=== PATIENT | female | born 1965 | race African-American/Black ===

== ENCOUNTER 2017-09-22 17:01 | Emergency (ER) | payer OTHER ==
[~2017-09-22] VITALS: Ht 175.3 cm; Wt 92.5 kg
[~2017-09-22 17:01] MED LIST: BENZ100 PO; DELS30LI5 PO; MUCI600T PO; TYLE3 PO; ZITH250T PO
[2017-09-22 17:11] VITALS: BP 165/85; PULSE 87; RESP 19; TEMP 98; O2SAT 98
[2017-09-22] MEDS ORDERED: KETOROLAC TROMETHAMINE 60 MG/2 ML (IM) VIAL IM ONE (18:45)
[2017-09-22] MEDS ORDERED: ROBA750T PO (18:49)
--- NOTE | 2017-09-22 18:49 | PD ---
HPI Chief Complaint: Musculoskeletal Complaint Time Seen by Provider: 18:36 Travel History International Travel<30 days: No Contact w/Intl Traveler<30days: No Traveled to known affect area: No History of Present Illness HPI 52-year-old female presents to the emergency room for evaluation of acute on chronic left shoulder pain. Patient has had pain for the past month. States it is progressively worsening. Pain is localized to the left anterior shoulder without radiation. She has similar pain in the right shoulder but not as severe. She has been taking ggus-iki-[id number] BC powder and applying multiple [id number]-dot-[id number] topical medications with moderate relief in symptoms. Pain is exacerbated after waking up in the morning. Also worse with range of motion. She denies any trauma or injury. She has not seen anyone for these symptoms. Denies paresthesias. PFSH Past Medical History High Cholesterol: Yes Diminished Hearing: No Migraines: Yes Influenza Vaccination: No ?: Not Menopausal: Yes : 3 Para: 3 Past Surgical History Gynecologic Surgery: Yes (hyster) Hysterectomy: Yes Social History Alcohol Use: No Tobacco Use: No Substance Use: No Allergies-Medications (Allergen,Severity, Reaction): Coded Allergies: acetaminophen (Unverified Allergy, Severe, RASH, 09/22/17) oxycodone (Unverified Allergy, Severe, RASH, 09/22/17) Reported Meds & Prescriptions Reported Meds & Active Scripts Active No Active Prescriptions or Reported Medications Review of Systems Except as stated in HPI: all other systems reviewed are Neg Physical Exam Narrative GENERAL: Well-nourished, well-developed female in no acute distress. Afebrile. Ambulatory. SKIN: Focused skin assessment warm/dry. HEAD: Normocephalic. EYES: No scleral icterus. No injection or drainage. NECK: Supple, trachea midline. No JVD or lymphadenopathy. CARDIOVASCULAR: Regular rate and rhythm without murmurs, gallops, or rubs. RESPIRATORY: Breath sounds equal bilaterally. No accessory muscle use. MUSCULOSKELETAL: No cyanosis. No obvious edema. 2+ radial pulse. Radial, ulnar, and median nerves intact. Limited range of motion of the left shoulder secondary to pain. Mild tenderness to palpation of the left anterior humeral head. Data Data Last Documented VS Vital Signs Date Time Temp Pulse Resp B/P (MAP) Pulse Ox O2 Delivery O2 Flow Rate FiO2 4/8/18 17:11 98.0 87 19 165/85 (609) 98 Orders Orders Ketorolac Inj (Toradol Inj) (09/22/17 18:45) [facility] Medical Decision Making Medical Screen Exam Complete: Yes Emergency Medical Condition: Yes Medical Record Reviewed: Yes Differential Diagnosis Osteoarthritis, bursitis, muscle spasm, rotator cuff injury Narrative Course 52-year-old female presents to the emergency room for evaluation of left anterior shoulder pain for the past month. She denies trauma or injury. Physical exam reveals limited range of motion of the left anterior humeral head. Left upper extremity is neurovascular intact with 2+ radial pulse. Radial, ulnar, median nerves intact. Given chronicity and description of pain without injury, x-ray will not be of benefit at this time. Patient was told this is likely osteoarthritis or bursitis. She was told to follow-up with her primary care physician for outpatient management. Given Toradol in the emergency room and discharged with prescription for Robaxin. She understands and agrees to plan. Diagnosis Primary Impression: Left anterior shoulder pain Referrals: Primary Care Physician Additional Instructions: Rest and drink plenty of fluids. Take Robaxin as directed, as needed for pain. Take ibuprofen with food as directed, as needed for pain. Do not take aspirin with this medication. Do not take more than directed. Apply ice to the affected area for 20 minutes at a time, as needed for pain and swelling. Follow-up with a primary care physician. Return to the emergency room for worsening symptoms. Med/Other Pt SpecificInfo: Prescription(s) given Scripts No Active Prescriptions or Reported Meds Disposition: 01 DISCHARGE HOME Condition: Stable Odilia Drew Sep 22, 2017 18:49
== END 2017-09-22 19:00 | disposition home or self-care (01) ==
LOC: PHED 17:01 → PHEFT 19:00
DX: M25.512 Pain in left shoulder (principal); E78.00 Pure hypercholesterolemia, unspecified; Z88.6 Allergy status to analgesic agent; Z88.5 Allergy status to narcotic agent
CPT/HCPCS: 96372; 99283; J1885